=== PATIENT | female | born 1990 | race Caucasian/White ===

== ENCOUNTER 2025-01-16 13:14 | Inpatient (IN) | payer BC ==
[2025-01-16] MEDS ORDERED: Ondansetron PF 4 MG/2 ML Vial IVP PRN (14:35)
[2025-01-16] MEDS ORDERED: Lidocaine 1% (PF) 30 ML VIAL SC PRN (14:35)
[2025-01-16] MEDS ORDERED: hydrALAZINE 20 MG/ML VIAL SLOW IVP PRN (14:35)
[2025-01-16] MEDS ORDERED: Bisacodyl 10 MG SUPP PR PRN (14:35)
[2025-01-16] MEDS ORDERED: Milk Of Magnesia 30 ML UDCUP PO PRN (14:35)
[2025-01-16] MEDS ORDERED: Promethazine HCl 25 MG/ML VIAL IM PRN (14:35)
[2025-01-16] MEDS ORDERED: Diphenoxylate HCl/Atropine Tablet PO PRN (14:36)
[2025-01-16] MEDS ORDERED: Preparation H Ointment 28 GM TUBE PR PRN (14:36)
[2025-01-16] MEDS ORDERED: Lanolin Ointment 7 GM TUBE TOP PRN (14:36)
[2025-01-16] MEDS ORDERED: Carboprost 250 MCG/ML AMP IM PRN (14:36)
[2025-01-16] MEDS ORDERED: Oxytocin 30 units/NS 500 ML 500 ML IV SCH (14:45)
[2025-01-16] MEDS ORDERED: Oxytocin 10 UNITS/ML VIAL IM SCH (15:00)
[2025-01-16 15:09] VITALS: BMI 28.1
[2025-01-16] MEDS: Oxytocin 30 units/NS 500 ML 500 ML ONE (15:13)
[2025-01-16] MEDS: Oxytocin 10 UNITS/ML VIAL ONE (15:39)
[2025-01-16] MEDS: Benzocaine-Menthol 82.5 ML CAN TOP PRN (15:39)
[2025-01-16] MEDS: Ibuprofen 800 MG TAB PO SCH ×2 (15:39→21:04)
[2025-01-16 15:47] LABS: Hematocrit 35.9 % (34.9-44.5); Hemoglobin 12.5 g/dL (12.0-15.5); Mean Corpuscular HGB CONC 34.8 g/dL (32.0-36.0); Mean Corpuscular Hemoglobin 30.5 pg (27.0-33.0); Mean Corpuscular Volume 87.6 fL (81.6-98.3); Platelet Count 151 10x3/uL (150-450); RBC Distribution Width 12.8 % (11.5-14.5); White Blood Cell (WBC) Count 15.99 10x3/uL (3.5-10.5)
[2025-01-16 16:29] LABS: Syphilis Antibody Nonreactive (Nonreactive); Syphilis Antibody Index 0.04 S/CO (<1.00 Non-Reactive)
[2025-01-16 16:30] LABS: HBsAg Index 0.16 S/CO (0-0.99); Hep B Surf Ag - L&D Non-Reactive S/CO (NonReactive)
[2025-01-16] MEDS: Methylergonovine 0.2 MG/ML VIAL IM PRN (16:30)
[2025-01-16] MEDS: Misoprostol 200 MCG TAB PR PRN (16:52)
[2025-01-16] MEDS: HYDROcodone/Acetaminophen 5/325 mg Tablet PO PRN (17:29)
[2025-01-16] MEDS: Ferrous Sulfate 325 MG TAB PO SCH (17:44)
[2025-01-16] MEDS: Boostrix 0.5 ML (Tdap) VIAL (>/=7 yrs of age) IM ONE (18:34)
[2025-01-16] MEDS: Docusate 100 MG CAP PO SCH (21:04)
[2025-01-17] MEDS: Acetaminophen 500 MG TAB PO PRN (02:53)
[2025-01-17] MEDS: Prenatal Vitamin 1 TAB PO SCH (08:38)
[2025-01-17 16:14] VITALS: BP 123/58; TEMP 98.5
== END 2025-01-17 16:01 | disposition home or self-care (01) | DRG 806 ==
LOC: CSHLD/OP 13:14 → CSHLD 14:56 → CSHPP 18:10
PROVIDERS: ADMIT Obstetrics & Gynecology; ATTEND Obstetrics & Gynecology
PROC: 10E0XZZ Delivery of Products of Conception, External Approach (ICD-10-PCS; principal; 2025-01-16)
PROC: 0UQGXZZ Repair Vagina, External Approach (ICD-10-PCS; 2025-01-16)
DX: O76 Abnormality in fetal heart rate and rhythm complicating labor and delivery (principal); O71.4 Obstetric high vaginal laceration alone; Z37.0 Single live birth; Z3A.39 39 weeks gestation of pregnancy
CPT/HCPCS: 85027; 86780; 86850; 86900; 86901; 87340; 99285; J2210; J2590